=== PATIENT | male | born 1955 | race Caucasian/White ===

== ENCOUNTER 2017-03-29 09:58 | Day surgery (SDC) | payer OTHER ==
[~2017-03-29] VITALS: Ht 167.6 cm; Wt 80.0 kg
[2017-03-29 10:49] VITALS: Ht 167.6 cm; Wt 80.0 kg
[2017-03-29 10:55] VITALS: BP 126/67; PULSE 61; RESP 16
[2017-03-29 11:21] LABS: ALBUMIN 4.3 g/dl (3.3-4.9); ALBUMIN/GLOBULIN RATIO 1.34; BILIRUBIN,INDIRECT 1.4 mg/dl (0-1.1); BILIRUBIN,TOTAL 1.4 mg/dl (0.2-1.3); TOTAL PROTEIN 7.5 g/dl (6.1-8.1)
[2017-03-29 11:37] LABS: CALCIUM 9.5 mg/dl (8.4-10.2); CREATININE 0.58 mg/dl (0.61-1.24); POTASSIUM 3.7 mmol/L (3.5-5.1)
--- NOTE | 2017-03-29 11:38 | HPN ---
Date/Time of Note Date/Time of Note DATE: 03/29/17 TIME: 11:38 Interval H&P Admission Note Pt. seen H&P reviewed: No system changes JEAN CARLOS CHACKO MD Mar 29, 2017 11:38
[2017-03-29] MEDS ORDERED: BUPIVACAINE 0.25% (MPF) 30 ML INJ ONE (12:00)
[2017-03-29] MEDS ORDERED: CEFAZOLIN 2 GM/50 ML (PMX) 50 ML IVPB SCH (12:00)
[2017-03-29] MEDS ORDERED: FENTAnyl 50 MCG/ML VIAL ONE (12:17)
[2017-03-29] MEDS ORDERED: PROPOFOL 40 ML ONE (12:34)
[2017-03-29] MEDS ORDERED: ROCURONIUM 50 MG INJ ONE (12:34)
[2017-03-29] MEDS ORDERED: LIDOCAINE 2% (SDV) 5 ML INJ ONE (12:34)
[2017-03-29] MEDS ORDERED: CEFAZOLIN 1 GM INJ ONE (12:34)
[2017-03-29] MEDS ORDERED: SUCCINYLCHOLINE CHLORIDE 100 MG/5 ML SYG IV ONE (12:34)
[2017-03-29] MEDS ORDERED: BUPIVACAINE 0.5% (SDV) 30 ML INJ ONE (12:35)
[2017-03-29] MEDS ORDERED: BACITRACIN/POLYMYXIN 28.35 GM OINT TOP ONE (12:41)
[2017-03-29] MEDS ORDERED: HYDROmorphONE (0.2 MG/ML) 10ML SYG IV PRN ×3 (13:00)
[2017-03-29] MEDS ORDERED: FENTAnyl 50 MCG/ML VIAL IV PRN ×2 (13:00)
[2017-03-29] MEDS ORDERED: METOCLOPRAMIDE 10 MG INJ IV PRN (13:00)
[2017-03-29] MEDS ORDERED: ONDANSETRON 4 MG INJ IV PRN (13:00)
[2017-03-29] MEDS ORDERED: DIPHENHYDRAMINE 50 MG INJ IV PRN (13:00)
[2017-03-29] MEDS ORDERED: MEPERIDINE 25 MG INJ IV PRN (13:00)
[2017-03-29] MEDS ORDERED: SUGAMMADEX SODIUM 200 MG/2 ML VIAL IV ONE (13:28)
[2017-03-29 13:44] VITALS: BP 105/53; PULSE 70; RESP 14
[2017-03-29 13:49] VITALS: BP 111/57; PULSE 68; RESP 14
[2017-03-29 13:54] VITALS: BP 117/59; PULSE 66; RESP 14
--- NOTE | 2017-03-29 13:58 | OPR ---
Date/Time of Note Date/Time of Note DATE: 03/29/17 TIME: 13:47 Operative Report Procedure Date: Mar 29, 2017 Preoperative Diagnosis Multiple sebaceous cysts of the scrotal wall Postoperative Diagnosis Multiple sebaceous cysts of the scrotal wall Operation Performed Excision of multiple sebaceous cysts of the scrotal wall totaling 9 groups, each group has between 3-6 cysts Surgeon: JEAN CARLOS CHACKO MD Anesthesia: general Anesthesiologist: CHLOE COSTELLO Estimated Blood Loss: 0 - 10 ml's Specimens 9 groups of sebaceous cyst Complications: None Indications Numerous sebaceous cysts of the scrotum Operative\Procedure Findings Numerous sebaceous cysts of the scrotum Procedure Description The patient was brought to the operating room and was given general anesthesia. Time out was done, the patient was identified by his name, date and the procedure. The patient was given 2 g of Ancef IV at the start of the procedure. An incision was made around the base of the largest sebaceous cyst in elliptical fashion and then using the electrocautery it was excised completely and intact. All the bleeders in the subcutaneous tissue and edge of the skin were electrocoagulated. Then the incision was closed using 3-0 Vicryl interrupted sutures. The suture included the skin and the subcutaneous tissue as well. The same procedure was repeated 9 times each time excising a group of sebaceous cysts, some of the groups had 2 or 3 cysts together, others at 6 or more grouped together. At the end of the procedure all the incisions were covered with triple antibiotic ointment and 2 pieces of Telfa and a fluff dressing. The dressing was kept in place using an extra large scrotal support. The patient was transferred to recovery room in stable and satisfactory condition . JEAN CARLOS CHACKO MD Mar 29, 2017 13:58
[2017-03-29 13:59] VITALS: BP 119/62; PULSE 62; RESP 14
[2017-03-29] MEDS ORDERED: HYDROCODONE/APAP (5/325) TAB PO PRN (14:00)
[2017-03-29 14:50] VITALS: BP 136/68; PULSE 58; RESP 18
== END 2017-03-29 16:30 | disposition home or self-care (01) ==
LOC: SDS 09:58
PROVIDERS: ATTEND Urology
DX: L72.3 Sebaceous cyst (principal); E83.59 Other disorders of calcium metabolism
CPT/HCPCS: 11426; 80053; 88304; J0690; J3010; J7999; Z7512; Z7610

== ENCOUNTER 2017-08-22 09:00 | Day surgery (SDC) | payer OTHER ==
[~2017-08-22] VITALS: Ht 172.7 cm; Wt 76.0 kg
[2017-08-22] MEDS ORDERED: [UNRECOGNIZED DRUG - OTHER] (09:20)
[2017-08-22 09:22] VITALS: Ht 172.7 cm; Wt 76.0 kg
[2017-08-22 09:41] VITALS: BP 129/69; PULSE 70; RESP 18
--- NOTE | 2017-08-22 10:42 | OPPN ---
Date/Time of Note Date/Time of Note DATE: 08/22/17 TIME: 10:40 Operative Report Preoperative Diagnosis Abdominal pain Chronic heartburn Screening Postoperative Diagnosis Gastroesophageal reflux disease Gastritis Gastric nodule on the lesser curvature of the stomach and biopsies were taken for histopathology 3 small sigmoid colon polyps were removed Internal hemorrhoids Operation/Procedure Performed Esophagogastroduodenoscopy and biopsy Colonoscopy and biopsy Surgeon see signature line assistant drafter None Anesthesia: moderate sedation Estimated blood loss: none Transfusion Required none Specimen Gastric nodule biopsy Biopsy sigmoid polyps Grafts/Implants none Complications none RAVEN OLEA MD Aug 22, 2017 10:42
[2017-08-22] MEDS ORDERED: MIDAZOLAM 1 MG/ML 2 ML INJ ONE ×3 (10:51)
[2017-08-22] MEDS ORDERED: FENTAnyl 50 MCG/ML VIAL ONE (10:51)
[2017-08-22 11:01] VITALS: BP 115/71; RESP 70
--- NOTE | 2017-08-22 23:26 | GILP ---
DATE OF PROCEDURE: NAME OF PROCEDURES: 1. Esophagogastroduodenoscopy and biopsy. 2. Colonoscopy and biopsy. SURGEON: Raven Quispe MD PREOPERATIVE DIAGNOSES: 1. Abdominal pain. 2. Chronic heartburn. 3. Screening colonoscopy. POSTOPERATIVE DIAGNOSES: 1. Gastroesophageal reflux disease. 2. Gastric nodule on the lesser curvature and the incisura, and biopsies were taken for histopathology. 3. Bile reflux gastritis with erosions. 4. Colonoscopy all the way to the cecum. 5. Three small sigmoid colon polyps were removed, diverticulosis of the colon. 6. Internal hemorrhoids. INDICATION FOR THE PROCEDURE: Mr. Jv Florez is a 62-year-old male patient who had upper abdominal pain and chronic heartburn, not responding to therapy. He also needed screening colonoscopy. The procedures and possible complications were well explained to the patient, the patient understood and consented to the procedures. DESCRIPTION OF PROCEDURE: Under the influence of fentanyl and Versed, the gastroscope was carefully introduced into the esophagus and under direct vision , it was advanced to the stomach and through the pylorus, into duodenal bulb and descending duodenum. FINDINGS: ESOPHAGUS: The patient had gastroesophageal reflux disease. STOMACH: He had gastritis and he had a gastric nodule on the lesser curvature and incisura, and biopsies were taken for histopathology. He was also noted to have bile reflux gastritis with erosions. DUODENUM: Normal. The colonoscope was carefully introduced in the rectum and under direct vision, it was advanced all the way to the cecum. FINDINGS: The patient had 3 small sigmoid colon polyps and they were removed using biopsy forceps. He had internal hemorrhoids and diverticulosis of the colon. He tolerated the procedures very well and there was no complication from the procedures. At the end of the procedures, he was awake with stable vital signs and he was discharged home to the care of his family. IMPRESSION: 1. Continue omeprazole 40 mg p.o. q.a.m. 2. Add Carafate 1 g p.o. t.i.d. a.c. 3. Await histopathology reports. 4. Next screening colonoscopy in 5 to 10 years depending upon the biopsy report. Dictated By: RAVEN SOARES/WAYNE Conf#: [id number] [facility]#: [id number] [facility]
== END 2017-08-22 11:55 | disposition home or self-care (01) ==
LOC: GIL 09:00
PROVIDERS: ATTEND Internal Medicine Gastroenterology
DX: Z12.11 Encounter for screening for malignant neoplasm of colon (principal); D12.5 Benign neoplasm of sigmoid colon; K29.50 Unspecified chronic gastritis without bleeding; K21.9 Gastro-esophageal reflux disease without esophagitis; K64.8 Other hemorrhoids
CPT/HCPCS: 43239; 45380; 88305; 88312; J2250; J3010; Z7610